=== PATIENT | female | born 1990 | race Caucasian/White ===

== ENCOUNTER 2019-03-04 12:25 | Emergency (ER) | payer MEDICAID ==
[~2019-03-04] VITALS: Ht 162.6 cm; Wt 65.8 kg
[2019-03-04 13:42] LABS: BASOPHILS % (AUTO) 0.7 % (0.0-2.0); EOSINOPHILS % (AUTO) 0.8 % (0.0-3.0); HEMATOCRIT 38.9 % (37.0-47.0); HEMOGLOBIN 13.8 G/DL (12.0-16.0); LYMPHOCYTES % (AUTO) 20.5 % (20.0-45.0); MEAN CORPUSCULAR VOLUME 86 FL (80-99); MONOCYTES % (AUTO) 6.3 % (1.0-10.0); NEUTROPHILS % (AUTO) 71.7 % (45.0-75.0); PLATELET COUNT 271 K/UL (150-450); RED BLOOD COUNT 4.54 M/UL (4.20-5.40); RED CELL DISTRIBUTION WIDTH 10.2 % (11.6-14.8); WHITE BLOOD COUNT 10.1 K/UL (4.8-10.8)
[2019-03-04 13:44] LABS: APPEARANCE,URINE SLIGHTLY CLOUDY; BILIRUBIN, URINE NEGATIVE (NEGATIVE); GLUCOSE, URINE (UA) NEGATIVE (NEGATIVE); KETONES,URINE 3+ (NEGATIVE); LEUKOCYTE ESTERASE ,URINE NEGATIVE (NEGATIVE); NITRITE,URINE NEGATIVE (NEGATIVE); PH,URINE 8 (4.5-8.0); PROTEIN,URINE NEGATIVE (NEGATIVE); UROBILINOGEN,URINE NORMAL MG/DL (0.0-1.0)
[2019-03-04 13:46] LABS: COLOR,URINE YELLOW
[2019-03-04 14:02] LABS: ANION GAP 11 mmol/L (5-15); BLOOD UREA NITROGEN 10 mg/dL (7-18); CALCIUM 9.4 MG/DL (8.5-10.1); CARBON DIOXIDE 24 MMOL/L (21-32); CHLORIDE 103 MMOL/L (98-107); CREATININE 0.6 MG/DL (0.55-1.30); POTASSIUM 3.3 MMOL/L (3.5-5.1); SODIUM 138 MMOL/L (136-145)
--- NOTE | 2019-03-04 14:14 | Emergency Room Report ---
History of Present Illness General Chief Complaint: Complications Source: Patient Present Illness HPI 29 YO Female presents to the ED C/o 10/01 in severity midline lower abdominal cramping and LBP x 2 weeks. Pt. just had a positive test at urgent care today. Pt. reports she is and LMP was on 01/14/19. Pt. reports irregular cycles. She was not aware that she was . Pt. is not on control but is sexually active. She denies N/V/F/C, constipation or diarrhea. Pt. denies vaginal d/c, genital lesions, dysuria, hematuria or urinary frequency. She has been taking Tyelnol and IBU with no relief. Pt. is also c/o of persistent cough x 5 weeks mainly at night. She reports hx of acid reflux in the past. She states she is a smoker, and smokes daily. PT. reports that she was seen at urgent care 3 weeks ago for cough and she continues to have no improvement, but no progression. She denies recent travel or ill contacts. PT. denies abdominal tenderness. She denies ARRIAGA, neck pain/stiffness, photophobia, ST , nasal congestion or rhinorrhea. No other aggravating or relieving factors at this time. PT. is UTD with vaccinations and has no PMHx. Allergies: Coded Allergies: SULFAMETHOXAZOLE (Verified Allergy, Unknown, 03/04/19) TRIMETHOPRIM (Verified Allergy, Unknown, 03/04/19) Uncoded Allergies: PENICILLIN (Allergy, Unknown, 03/04/19) SULFA (Allergy, Unknown, 03/04/19) Patient History Past Medical History: see triage record Past Surgical History: none Pertinent Family History: none Now: Yes : 1 Para: 0 Reviewed Nursing Documentation: PMH: Agreed; PSxH: Agreed Nursing Documentation-PMH Past Medical History: No Stated History Review of Systems All Other Systems: negative except mentioned in HPI Physical Exam Vital Signs Date Time Temp Pulse Resp B/P (MAP) Pulse Ox O2 Delivery O2 Flow Rate FiO2 03/04/19 12:30 97.5 98 18 138/56 (83) 98 Room Air Sp02 EP Interpretation: reviewed, normal General Appearance: no apparent distress, alert, GCS 15, non-toxic Head: normocephalic, atraumatic Eyes: bilateral eye normal inspection, bilateral eye PERRL ENT: hearing grossly normal, normal voice Neck: full range of motion Respiratory: chest non-tender, lungs clear, normal breath sounds, no respiratory distress, no wheezing, speaking full sentences Cardiovascular #1: regular rate, rhythm Gastrointestinal: normal bowel sounds, non tender, soft, non-distended, no guarding Genitourinary: normal inspection, no CVA tenderness Musculoskeletal: back normal, normal range of motion, gait/station normal, non- tender Neurologic: alert, motor strength/tone normal, oriented x3, sensory intact, responsive, speech normal Psychiatric: judgement/insight normal Skin: no rash, normal color Medical Decision Making PA Attestation Dr. Flores Is my supervising Physician whom patient management has been discussed with. Diagnostic Impression: Primary Impression: with suprapubic cramping, antepartum Additional Impressions: Threatened miscarriage in early Persistent cough ER Course 29 YO Female presents to the ED C/o 10/01 in severity midline lower abdominal cramping and LBP x 2 weeks. Pt. just had a positive test at urgent care today. Pt. reports she is and LMP was on 01/14/19. Pt. reports irregular cycles. She was not aware that she was . Pt. is not on control but is sexually active. She denies N/V/F/C, constipation or diarrhea. Pt. denies vaginal d/c, genital lesions, dysuria, hematuria or urinary frequency. She has been taking Tyelnol and IBU with no relief. Pt. is also c/o of persistent cough x 5 weeks mainly at night. She reports hx of acid reflux in the past. She states she is a smoker, and smokes daily. PT. reports that she was seen at urgent care 3 weeks ago for cough and she continues to have no improvement, but no progression. She denies recent travel or ill contacts. PT. denies abdominal tenderness. She denies ARRIAGA, neck pain/stiffness, photophobia, ST , nasal congestion or rhinorrhea. No other aggravating or relieving factors at this time. PT. is UTD with vaccinations and has no PMHx. Ddx considered but are not limited to: IUP, Fibroid, ectopic , Miscarriage, STI, UTI, Pyelonephritis, Constipation, URI, bronchitis, GERD just to name a few. Vital signs: are WNL, pt. is afebrile H&PE are most consistent with: Cramping during early . and bronchitis/ vs. GERD for chronic cough. ORDERS: -CBC: WNL -BMP: NWL -UA: WNL -Serum Hcg Quant: 26,796 -Pelvic US complete- normal intrauterine estimated at 5 weeks 6 days gestation with a HR of 113bpm. ED INTERVENTIONS: -Tylenol PO Pt. will be d/c with Rx for nicotine lozenges, pills, and cough syrup. She is given several [facility] for follow up resources. DISCHARGE: At this time pt. is stable for d/c to home. Will provide printed patient care instructions, and any necessary prescriptions. Care plan and follow up instructions have been discussed with the patient prior to discharge. Labs Test 03/04/19 13:05 White Blood Count 10.1 K/UL (4.8-10.8) Red Blood Count 4.54 M/UL (4.20-5.40) Hemoglobin 13.8 G/DL (12.0-16.0) Hematocrit 38.9 % (37.0-47.0) Mean Corpuscular Volume 86 FL (80-99) Mean Corpuscular Hemoglobin 30.3 PG (27.0-31.0) Mean Corpuscular Hemoglobin Concent 35.4 G/DL (32.0-36.0) Red Cell Distribution Width 10.2 % (11.6-14.8) Platelet Count 271 K/UL (150-450) Mean Platelet Volume 6.7 FL (6.5-10.1) Neutrophils (%) (Auto) 71.7 % (45.0-75.0) Lymphocytes (%) (Auto) 20.5 % (20.0-45.0) Monocytes (%) (Auto) 6.3 % (1.0-10.0) Eosinophils (%) (Auto) 0.8 % (0.0-3.0) Basophils (%) (Auto) 0.7 % (0.0-2.0) Urine Color Yellow Urine Appearance Slightly cloudy Urine pH 8 (4.5-8.0) Urine Specific [place] 1.015 (1.005-1.035) Urine Protein Negative (NEGATIVE) Urine Glucose (UA) Negative (NEGATIVE) Urine Ketones 3+ (NEGATIVE) Urine Blood Negative (NEGATIVE) Urine Nitrite Negative (NEGATIVE) Urine Bilirubin Negative (NEGATIVE) Urine Urobilinogen Normal MG/DL (0.0-1.0) Urine Leukocyte Esterase Negative (NEGATIVE) Urine RBC 0 /HPF (0 - 2) Urine WBC 0 /HPF (0 - 2) Urine Squamous Epithelial Cells Moderate /LPF (NONE/OCC) Urine Bacteria Few /HPF (NONE) Sodium Level 138 MMOL/L (136-145) Potassium Level 3.3 MMOL/L (3.5-5.1) Chloride Level 103 MMOL/L (98-107) Carbon Dioxide Level 24 MMOL/L (21-32) Anion Gap 11 mmol/L (5-15) Blood Urea Nitrogen 10 mg/dL (7-18) Creatinine 0.6 MG/DL (0.55-1.30) Estimat Glomerular Filtration Rate > 60 mL/min (>60) Glucose Level 90 MG/DL (74-106) Calcium Level 9.4 MG/DL (8.5-10.1) CT/MRI/US Diagnostic Results CT/MRI/US Diagnostic Results : Imaging Test Ordered: Pelvic OB US Impression Normal intrauterine estimated at 5 weeks 6 days gestation with a HR of 113bpm. Last Vital Signs Date Time Temp Pulse Resp B/P (MAP) Pulse Ox O2 Delivery O2 Flow Rate FiO2 03/04/19 12:30 97.5 98 18 138/56 (83) 98 Room Air Status: improved Disposition: HOME, SELF-CARE Condition: Stable Scripts D-Methorphan Hb/Prometh Hcl* (PROMETHAZINE-DM SYRUP*) 118 Ml Syrup 5 ML ORAL Q6H PRN for For Cough, #120 ML 0 Refills Prov: Missy Todd 03/04/19 Nicotine Polacrilex (NICOTINE LOZENGE) 4 Mg Lozenge 4 MG BC PRN, #30 LOZENGE Prov: Missy Todd 03/04/19 Ranitidine Hcl* (ZANTAC*) 150 Mg Tablet 150 MG ORAL TWICE A DAY for 10 Days, #20 TAB Prov: Missy Todd 03/04/19 Vit #91/Fe Fum/Fa/Dha ( + DHA COMBO PACK) 1 Each Combo..pkg 1 EACH PO DAILY, #1 PACK 3 Refills Prov: Missy Todd 03/04/19 Referrals: SHAHID BARRIOS M.D. (PCP) [facility] Patient Instructions: Abdominal Pain During , [id number], Heartburn During , [id number] Additional Instructions: Take medications as directed. Follow up with a OBGYN within 3 days, even if your symptoms have resolved. Return sooner to ED if new symptoms occur, or current symptoms become worse. - Please note that this Emergency Department Report was dictated using [email or web address] repaire[employer] technology software, occasionally this can lead to erroneous entry secondary to interpretation by the dictation equipment. Missy Todd Mar 04, 2019 14:14
[2019-03-04] MEDS ORDERED: Acetaminophen 500mg (ES) tab ORAL ONE (14:30)
[2019-03-04] MEDS ORDERED: NICOTINE LOZENGE4 MG BC (14:45)
[2019-03-04] MEDS ORDERED: ZANTAC150 MG ORAL (14:45)
[2019-03-04] MEDS ORDERED: PRENATAL + DHA1 EAC1 PO (14:45)
--- NOTE | 2019-03-04 15:05 | Diagnostic Imaging Report ---
Indication: Cramping, patient Technique: Transabdominal and transvaginal images of the pelvis. Doppler interrogation of the ovaries Comparison: none Findings: There is an intrauterine gestational sac demonstrated. This demonstrates a tiny yolk sac. There is a pole with crown-rump length of 3 mm. This corresponds to an estimated gestational age of 5 weeks 4 days. There is heart activity, heart 111 bpm. No evidence of subchorionic hemorrhage. No myometrial abnormality. Left ovary measures 4 cm length. Right ovary measures 2.8 cm length. Both ovaries demonstrate normal flow on Doppler interrogation. Left ovary demonstrates a hemorrhagic corpus luteum cyst. There is trace free cul-de-sac fluid Impression: 5 week 4 day, by crown-rump length measurement, single live intrauterine . No unusual features Trace free cul-de-sac fluid, presumably physiologic
[2019-03-04] MEDS ORDERED: PROMETHAZINE-D118 ML ORAL (15:06)
[2019-03-04 15:08] VITALS: BP 138/56
== END 2019-03-04 15:05 | disposition home or self-care (01) ==
LOC: EMR 12:51
DX: O26.91 Pregnancy related conditions, unspecified, first trimester (principal); R10.30 Lower abdominal pain, unspecified; Z3A.01 Less than 8 weeks gestation of pregnancy; O20.0 Threatened abortion; R05 Cough; Z88.2 Allergy status to sulfonamides; Z88.0 Allergy status to penicillin; F17.200 Nicotine dependence, unspecified, uncomplicated
CPT/HCPCS: 36415; 76801; 76830; 80048; 81003; 84702; 85025; Z7502; 99284